=== PATIENT | male | born 1960 | race Caucasian/White ===

== ENCOUNTER 2016-12-14 12:26 | Day surgery (SDC) | payer BC ==
[~2016-12-14 12:26] MED LIST: Midazolam 1 MG/ML 2 ML SDV ONE; Propofol 200 MG/20 ML SDV ONE; fentaNYL 100 MCG/2 ML SDV ONE
[2016-12-14] MEDS ORDERED: Lactated Ringers 1,000 ML IV SCH (12:30)
[2016-12-14] MEDS ORDERED: Sodium Chloride 0.9% 5 ML Syringe FLUSH PRN (12:30)
[2016-12-14] MEDS ORDERED: Propofol 200 MG/20 ML SDV ONE (12:46)
--- NOTE | 2016-12-14 13:07 | PCM.PN ---
- General Info Date of Service: 12/14/16 - Review of Systems Systems Review Comment:: 56-year-old male here for colonoscopy. He has a history of colon polyps. His last colonoscopy was 3 years ago. I have discussed the proposed colonoscopy with the patient. Risks such as but not limited to bleeding and GI injury discussed and he agrees to proceed. - Patient Data Vitals - most recent: Last Vital Signs Temp 97.3 F 12/14/16 12:42 Pulse 93 12/14/16 12:42 Resp 14 12/14/16 12:42 BP 151/81 H 12/14/16 12:42 Pulse Ox 97 12/14/16 12:42 Weight - most recent: 107.955 kg Med Orders - Current: Current Medications Lactated Ringer's (Ringers, Lactated) 1,000 mls @ 50 mls/hr IV ASDIRECTED GRISELDA Sodium Chloride (Syrex Flush) 5 ml FLUSH Q8HR PRN PRN Reason: Keep Vein Open Discontinued Medications Fentanyl (Sublimaze) Confirm Administered Dose 100 mcg .ROUTE .STK-MED ONE Stop: 12/14/16 11:44 Midazolam HCl (Versed 1 Mg/Ml) Confirm Administered Dose 2 mg .ROUTE .STK-MED ONE Stop: 12/14/16 11:44 Propofol (Diprivan 20 Ml) Confirm Administered Dose 200 mg .ROUTE .STK-MED ONE Stop: 12/14/16 11:44 - Problem List Review Problem List Initiated/Reviewed/Updated: Yes - My Orders Last 24 Hours: My Active Orders 12/13/16 Dinner Nothing Per Oral Diet [DIET] 12/14/16 12:30 Patient to Empty Bladder [RC] ASDIRECTED Peripheral IV Care [RC] . DIRECTED Verify Patient Consent Obtain [RC] ASDIRECTED Lactated Ringers [Ringers, Lactated] 1,000 ml IV ASDIRECTED Sodium Chloride 0.9% [Syrex Flush] 5 ml FLUSH Q8HR PRN Peripheral IV Insertion Adult [OM.PC] Routine - Assessment Assessment:: History of Colon Polyps - Plan Plan:: Colonoscopy
[2016-12-14] MEDS ORDERED: fentaNYL 100 MCG/2 ML SDV IV ONE (13:26)
[2016-12-14] MEDS ORDERED: Midazolam 1 MG/ML 2 ML SDV IV ONE (13:26)
[2016-12-14] MEDS ORDERED: Propofol 200 MG/20 ML SDV IV ONE (13:26)
--- NOTE | 2016-12-14 14:10 | PCM.OPNOTE ---
- General Post-Op/Procedure Note Date of Surgery/Procedure: 12/14/16 Operative Procedure(s): Colonoscopy Findings: Mild Sigmoid Diverticulosis Small Internal Hemorrhoids Pre Op Diagnosis: History of Colon Polyps Post-Op Diagnosis: Diverticulosis. Hemorrhoids Anesthesia Technique: MAC Primary Surgeon: Nehemiah Cevallos Pathology: none Output, Urine Amount: 0 EBL in mLs: 0 Complications: None Condition: Good
[2016-12-14 15:01] VITALS: BP 117/73
--- NOTE | 2016-12-15 01:01 | OR ---
DATE OF SURGERY: 12/14/2016 SURGEON: Nehemiah Cevallos MD PREOPERATIVE DIAGNOSIS: History of colon polyps. POSTOPERATIVE DIAGNOSIS: Diverticulosis and internal hemorrhoids. OPERATION PERFORMED: Colonoscopy. INDICATIONS FOR SURGERY: This 56-year-old male has a known history of colon polyps and he comes for surveillance colonoscopy. FINDINGS: No polyps were seen on today's exam. He has a mild degree of diverticulosis, which appears uncomplicated in the sigmoid region. He also has small internal hemorrhoids. PROCEDURE: The patient was taken to the operating room. He was given intravenous sedation and with him in the left lateral decubitus position, digital rectal exam was performed showing no rectal masses. The Olympus colonoscope was inserted into the rectum. Retroflexed examination of the rectal canal was performed. The scope was then carefully advanced under direct visualization through the entire length of the colon until the cecum was reached. Cecal acquisition was confirmed by noting the normal internal cecal anatomy including the appendiceal orifice and ileocecal valve to this. Acquisition of the cecum was assisted by hand pressure and placing the patient in the supine position. The light was noted to transilluminate the abdominal wall in the right lower quadrant. After examining the cecum, the scope was slowly withdrawn sequentially re-examining the colonic segments until the entire colon and rectum had been fully examined. The scope was then removed and the patient was taken from the operating room in satisfactory condition. ESTIMATED BLOOD LOSS: Zero. COMPLICATIONS: None. PROGNOSIS: Good. COMMENT: We will advise this patient to have a repeat colonoscopy in five years. /[id number]/MODL
== END 2016-12-14 15:05 | disposition home or self-care (01) ==
LOC: KA.SDS 12:26
PROVIDERS: ATTEND Surgery
DX: Z12.11 Encounter for screening for malignant neoplasm of colon (principal); K57.30 Diverticulosis of large intestine without perforation or abscess without bleeding; K64.8 Other hemorrhoids
CPT/HCPCS: 45378; J2250; J2704; J3010; J7120